=== PATIENT | female | born 1960 | race American Indian/Alaskan Native ===

== ENCOUNTER 2019-06-06 19:56 | Observation (INO) | payer BC, MEDICARE ==
--- NOTE | 2019-06-06 20:26 | Event Note ---
ED Screening Note ED Screening Note: pt states substernal CP that began today states it radiates down her left arm +mild SOB anxiety she states her BP was elevated at work, 142/90 denies any hx of HTN PMHx: PE 1997, gastric sleeve, anxiety/ depression, CHF This initial assessment/diagnostic orders/clinical plan/treatment(s) is/are subj ect to change based on patients health status, clinical progression and re- assessment by fellow clinical providers in the ED. Further treatment and workup at subsequent clinical providers discretion. Patient/guardian urged not to elope from the ED as their condition may be serious if not clinically assessed and managed. Initial orders include: CP protocol
--- NOTE | 2019-06-06 20:55 | XRay Report ---
CHEST 2 VIEWS INDICATION: CP. Acute left-sided chest pain COMPARISON: Chest x-ray from 09/12/2018 FINDINGS: Support devices: None. Heart: Old sternotomy change. Lungs/pleura: Minimal patchy left basilar airspace disease with otherwise clear lungs. No pneumothor ax. Additional findings: None. IMPRESSION: 1. Minimal patchy left basilar airspace disease with otherwise clear lungs. Signer Name: Eitan Vasquez MD Signed: 06/06/2019 8:51 PM Workstation Name: [id number]
[2019-06-06 21:23] LABS: Basophils # (Auto) 0.1 K/mm3 (0.0-0.1); Eosinophils # (Auto) 0.1 K/mm3 (0.0-0.4); Eosinophils % (Auto) 1.8 % (0.0-4.3); Hematocrit 37.9 % (30.3-42.9); Hemoglobin 12.8 gm/dl (10.1-14.3); Lymphocytes # (Auto) 2.4 K/mm3 (1.2-5.4); Lymphocytes % (Auto) 35.7 % (13.4-35.0); Mean Corpuscular HGB Conc 34 % (30-34); Mean Corpuscular Volume 96 fl (79-97); Monocytes # (Auto) 0.6 K/mm3 (0.0-0.8); Monocytes % (Auto) 8.3 % (0.0-7.3); Platelet Count 300 K/mm3 (140-440); Red Blood Count 3.96 M/mm3 (3.65-5.03); Red Cell Distribution Width 14.5 % (13.2-15.2)
[2019-06-06 22:00] LABS: Alanine Aminotransferase 16 units/L (7-56); BUN/Creatinine Ratio 10; Blood Urea Nitrogen 5 mg/dL (7-17); Calcium 9.2 mg/dL (8.4-10.2); Hemolysis Index 8
--- NOTE | 2019-06-06 22:00 | Emergency Department Report ---
ED Chest Pain HPI - General Chief Complaint: Chest Pain Stated Complaint: BLOOD PRESSURE AND ARM PAIN, LEFT SIDE OF CHEST Time Seen by Provider: 06/06/19 20:17 Source: patient Mode of arrival: Ambulatory Limitations: No Limitations - History of Present Illness Initial Comments: 59-year-old female presents to ED with chest pain and generalized weakness. Patient states she felt weak at work, blood pressure was taken there, states it was high and she was told to come to the ER. Patient states systolic BP was in the 140s. Patient also reports chest pain that has been intermittent over the last 2-3 days, with radiation into the left arm. Patient denies shortness of breath, nausea, vomiting. Patient reports history of PE in the past, states she stopped taking her throughout in October of this year. Patient does not give a reason why. Patient reported tobacco use, denies alcohol and drug use. MD Complaint: chest pain -: days(s) (3) Onset: during rest Pain Location: substernal Pain Radiation: LUE Severity: mild Quality: aching Consistency: intermittent Improves With: nothing Worsens With: nothing re: denies: nausea, vomting, diaphoresis, dyspnea Other Symptoms: denies: cough, fever, leg swelling - Related Data Previous Rx's Medication Instructions Recorded Last Taken Type ALBUTEROL Inhaler(NF) [VENTOLIN 1 puff IH TID PRN #1 09/15/18 Unknown Rx Inhaler(NF)] ALBUTEROL NEB's [Proventil 0.083% 2.5 mg IH Q4HRT PRN #30 nebu 09/15/18 Unknown Rx NEBS] Acetaminophen [Acetaminophen TAB] 650 mg PO Q4H PRN #15 tablet 09/15/18 Unknown Rx Benzonatate [Tessalon Perles] 200 mg PO Q8HR PRN #9 capsule 09/15/18 Unknown Rx Cholecalciferol Vit D3 [Vitamin D3 1,000 unit PO QDAY #30 09/15/18 Unknown Rx 1,000 UNIT TAB] Cyanocobalamin (Vitamin B-12) 2,000 mcg PO DAILY #30 09/15/18 Unknown Rx [Vitamin B-12] Ferrous Sulfate [Iron 325 MG] 325 mg PO DAILY #30 09/15/18 Unknown Rx Fluticasone [Flonase] 1 inhalation NS QDAY 3 Days #1 09/15/18 Unknown Rx bottle Furosemide [Lasix TAB] 40 mg PO QDAY #30 09/15/18 Unknown Rx Loratadine [Claritin] 10 mg PO QDAY #15 tablet 09/15/18 Unknown Rx Oxycodone HCl [oxyCODONE] 30 mg PO DAILY PRN #5 09/15/18 Unknown Rx Rivaroxaban [Xarelto] 10 mg PO QDAY #30 tablet 09/15/18 Unknown Rx levoFLOXacin [Levaquin TAB] 500 mg PO Q24HR #6 tablet 09/15/18 Unknown Rx methylPREDNISolone [Medrol Dose 1 dose PO DAILY #1 pack 09/15/18 Unknown Rx Edu] Cyclobenzaprine [Flexeril] 10 mg PO TID PRN #30 tablet 10/21/18 Unknown Rx Menthol/Camphor [[place]ol[place] 1 applicatio TP QID PRN #1 tube 10/21/18 Unknown Rx Ointment] Naproxen 500 mg PO BID PRN #30 tablet 10/21/18 Unknown Rx Allergies Allergy/AdvReac Type Severity Reaction Status Date / Time No Known Allergies Allergy Verified 09/19/15 16:07 Heart Score - HEART Score History: Moderately suspicious EKG: Non-specific Age: 45-65 Risk factors: 1-2 risk factors Troponin: < normal limit HEART Score: 4 ED Review of Systems ROS: Stated complaint: BLOOD PRESSURE AND ARM PAIN, LEFT SIDE OF CHEST Other details as noted in HPI Comment: All other systems reviewed and negative Constitutional: denies: chills, fever Respiratory: denies: cough, shortness of breath Cardiovascular: chest pain Gastrointestinal: denies: nausea, vomiting Psychiatric: other (reports insomnia) ED Past Medical Hx - Past Medical History Previous Medical History?: Yes Hx Hypertension: No Hx Congestive Heart Failure: Yes Hx Diabetes: No Hx Deep Vein Thrombosis: Yes (Right leg) Hx Pulmonary Embolism: Yes (x2) Hx Liver Disease: No Hx Renal Disease: No Hx Sickle Cell Disease: No Hx Arthritis: Yes Hx Seizures: No Hx Kidney Stones: No Hx Asthma: No Hx COPD: No Hx Tuberculosis: No Hx Dementia: No Hx HIV: No Additional medical history: CROHN'S DISEASE - Surgical History Past Surgical History?: Yes Hx Coronary Stent: No Hx Open Heart Surgery: Yes (Thromboendarectomy) Hx Pacemaker: No Hx Internal Defibrillator: No Hx Cholecystectomy: Yes Hx Appendectomy: No Hx Breast Surgery: No Additional Surgical History: TUBAL. - Social History Smoking Status: Current Every Day Smoker Substance Use Type: None - Medications Home Medications: Home Medications Medication Instructions Recorded Confirmed Last Taken Type ALBUTEROL Inhaler(NF) [VENTOLIN 1 puff IH TID PRN #1 09/15/18 09/13/18 Unknown Rx Inhaler(NF)] ALBUTEROL NEB's [Proventil 0.083% 2.5 mg IH Q4HRT PRN #30 nebu 09/15/18 Unknown Rx NEBS] Acetaminophen [Acetaminophen TAB] 650 mg PO Q4H PRN #15 tablet 09/15/18 Unknown Rx Benzonatate [Tessalon Perles] 200 mg PO Q8HR PRN #9 capsule 09/15/18 Unknown Rx Cholecalciferol Vit D3 [Vitamin D3 1,000 unit PO QDAY #30 09/15/18 09/13/18 Unknown Rx 1,000 UNIT TAB] Cyanocobalamin (Vitamin B-12) 2,000 mcg PO DAILY #30 09/15/18 09/13/18 Unknown Rx [Vitamin B-12] Ferrous Sulfate [Iron 325 MG] 325 mg PO DAILY #30 09/15/18 09/13/18 Unknown Rx Fluticasone [Flonase] 1 inhalation NS QDAY 3 Days #1 09/15/18 Unknown Rx bottle Furosemide [Lasix TAB] 40 mg PO QDAY #30 09/15/18 09/13/18 Unknown Rx Loratadine [Claritin] 10 mg PO QDAY #15 tablet 09/15/18 Unknown Rx Oxycodone HCl [oxyCODONE] 30 mg PO DAILY PRN #5 09/15/18 09/13/18 Unknown Rx Rivaroxaban [Xarelto] 10 mg PO QDAY #30 tablet 09/15/18 Unknown Rx levoFLOXacin [Levaquin TAB] 500 mg PO Q24HR #6 tablet 09/15/18 Unknown Rx methylPREDNISolone [Medrol Dose 1 dose PO DAILY #1 pack 09/15/18 Unknown Rx Edu] Cyclobenzaprine [Flexeril] 10 mg PO TID PRN #30 tablet 10/21/18 Unknown Rx Menthol/Camphor [[place] 1 applicatio TP QID PRN #1 tube 10/21/18 Unknown Rx Ointment] Naproxen 500 mg PO BID PRN #30 tablet 10/21/18 Unknown Rx ED Physical Exam - General Limitations: No Limitations General appearance: alert, in no apparent distress - Head Head exam: Present: atraumatic, normocephalic - Eye Eye exam: Present: normal appearance, PERRL, EOMI - ENT ENT exam: Present: mucous membranes moist - Neck Neck exam: Present: normal inspection - Respiratory Respiratory exam: Present: normal lung sounds bilaterally. Absent: respiratory distress - Cardiovascular Cardiovascular Exam: Present: regular rate, normal rhythm - GI/Abdominal GI/Abdominal exam: Present: soft. Absent: distended, tenderness - Extremities Exam Extremities exam: Present: normal inspection. Absent: pedal edema, calf t enderness - Neurological Exam Neurological exam: Present: alert, oriented X3 - Psychiatric Psychiatric exam: Present: normal affect, normal mood - Skin Skin exam: Present: warm, dry, intact, normal color ED Course Vital Signs 06/06/19 06/06/19 06/06/19 20:10 20:19 21:58 Temperature 97.9 F 97.8 F Pulse Rate 80 79 Respiratory 18 18 Rate Blood Pressure 132/88 148/91 O2 Sat by Pulse 98 98 98 Oximetry 06/06/19 06/06/19 06/06/19 22:00 22:15 22:31 Temperature Pulse Rate 71 72 78 Respiratory 24 22 16 Rate Blood Pressure 143/93 143/93 143/93 O2 Sat by Pulse 98 98 98 Oximetry 06/06/19 06/06/19 06/06/19 22:45 22:52 23:00 Temperature Pulse Rate 79 77 Respiratory 16 16 13 Rate Blood Pressure 143/93 130/80 O2 Sat by Pulse 98 97 Oximetry 06/06/19 06/06/19 06/07/19 23:13 23:31 01:00 Temperature Pulse Rate 77 75 78 Respiratory 9 L 15 22 Rate Blood Pressure 130/80 130/80 150/89 O2 Sat by Pulse 99 96 95 Oximetry MAURO score - Mauro Score Age > 65: (0) No Aspirin use within the Past 7 Days: (1) Yes 3 or more CAD Risk Factors: (1) Yes 2 or more Angina events in past 24 hrs: (0) No Known CAD with more than 50% Stenosis: (0) No Elevated Cardiac Markers: (0) No ST Deviation Greater than 0.5mm: (0) No MAURO Score: 2 ED Medical Decision Making - Lab Data Result diagrams: 06/06/19 20:51 06/06/19 20:51 - EKG Data -: EKG Interpreted by Me EKG shows normal: sinus rhythm, axis, intervals, QRS complexes Rate: normal - EKG Data Interpretation: other (anterior T wave inversions) - Radiology Data Radiology results: report reviewed, image reviewed - Medical Decision Making 59-year-old female with generalized weakness and chest pain. Patient reports history of PE in the past, currently off anticoagulation. CTA is negative for any evidence of PE, however does show severe calcification of her coronary arteries. EKG unremarkable, troponin is negative. Patient is chest pain-free at this time. Will admit to hospitalist, Dr Dozier, for further evaluation. - Differential Diagnosis ACS, PE, pneumonia Critical care attestation.: If time is entered above; I have spent that time in minutes in the direct care of this critically ill patient, excluding procedure time. ED Disposition Clinical Impression: Acute chest pain Disposition: OP ADMIT IP TO THIS HOSP Is pt being admited?: Yes Condition: Stable Instructions: Chest Pain (ED) Referrals: VIRAJ CORMIER MD [Primary Care Provider] - 3-5 Days Time of Disposition: 01:37
[2019-06-06] MEDS ORDERED: MORPHINE IV ONE (23:04)
--- NOTE | 2019-06-07 01:08 | Cat Scan Report ---
CT angiography of the chest with intravenous contrast and multiplanar MIP reconstructions INDICATION / CLINICAL INFORMATION: Chest pain. TECHNIQUE: Axial CT images were obtained after injection of 100 cc Omnipaque 350 intravenously. IV contrast usin g CTA protocol. 3 plane MIP / 3D reconstructions were produced. All CT scans at this location are per formed using CT dose reduction for ALARA by means of automated exposure control. COMPARISON: 09/12/2018. FINDINGS: There is excellent opacification of the pulmonary arterial system bilaterally without intraluminal fi lling defect to suggest acute PTE. The central pulmonary arteries appear mildly dilated with the main pulmonary artery measuring 3.7 cm transverse. There is mild cardiomegaly. Marked coronary artery tan cification is present. There is mild ectasia of the ascending thoracic aorta without focal aneurysm o r dissection. The tracheobronchial tree is normal. There is mild scarring in both lungs. There is no evidence of ad enopathy or effusion. The gallbladder is surgically absent. The bile ducts are mildly dilated without a cause seen. There is an IVC filter. IMPRESSION: 1. No evidence of acute PTE. 2. Findings characteristic of pulmonary arterial hypertension. 3. Mild cardiomegaly and severe coronary artery calcification. 4. Mild bile duct prominence in a postcholecystectomy patient. Signer Name: Yogi Dill MD Signed: 06/07/2019 1:03 AM Workstation Name: [id number]
[2019-06-07] MEDS ORDERED: ASPIRIN PO ONE (01:36)
[2019-06-07] MEDS ORDERED: TYLENOL PO PRN (02:57)
[2019-06-07] MEDS ORDERED: DILAUDID IV PRN (02:57)
[2019-06-07] MEDS ORDERED: SODIUM CHLORIDE FLUSH SYRINGE 10 ML IV PRN (02:57)
[2019-06-07] MEDS ORDERED: ZOFRAN IV PRN (02:57)
--- NOTE | 2019-06-07 04:18 | History and Physical Report ---
History of Present Illness Date of examination: 06/07/19 Chief complaint: Chest pain History of present illness: Patient is a 59-year-old -[place] female with history of recurrent PE an d Crohn's disease who presented to the ED on account of 4 days history of left- sided chest pain. She described it as dull in character, rated 8/10, constant in duration and radiates to the left arm. No known aggravating or relieving factors. She has associated shortness of breath, diaphoresis, dry cough, chills without fever, headaches, nausea without vomiting and lightheadedness. No leg swelling, orthopnea, PND, syncope or loss of consciousness. Patient had an exercise stress test in August 2018 which was reported as negative. Past History Past Medical History: other (Crohn's disease, history of recurrent PE, herniated disc) Past Surgical History: cholecystectomy, Other (vein surgery) Social history: smoking (patient had 40 years history of cigarette smoking but quit in 2013. She admits to occasional alcohol use but denies illicit drug use) Family history: other (A sister has ulcerative colitis. No known family history of sudden cardiac or heart disease) Medications and Allergies Allergies Allergy/AdvReac Type Severity Reaction Status Date / Time No Known Allergies Allergy Verified 09/19/15 16:07 Home Medications Medication Instructions Recorded Confirmed Last Taken Type ALBUTEROL Inhaler(NF) [VENTOLIN 1 puff IH TID PRN #1 09/15/18 09/13/18 Unknown Rx Inhaler(NF)] ALBUTEROL NEB's [Proventil 0.083% 2.5 mg IH Q4HRT PRN #30 nebu 09/15/18 Unknown Rx NEBS] Acetaminophen [Acetaminophen TAB] 650 mg PO Q4H PRN #15 tablet 09/15/18 Unknown Rx Benzonatate [Tessalon Perles] 200 mg PO Q8HR PRN #9 capsule 09/15/18 Unknown Rx Cholecalciferol Vit D3 [Vitamin D3 1,000 unit PO QDAY #30 09/15/18 09/13/18 Unknown Rx 1,000 UNIT TAB] Cyanocobalamin (Vitamin B-12) 2,000 mcg PO DAILY #30 09/15/18 09/13/18 Unknown Rx [Vitamin B-12] Ferrous Sulfate [Iron 325 MG] 325 mg PO DAILY #30 09/15/18 09/13/18 Unknown Rx Fluticasone [Flonase] 1 inhalation NS QDAY 3 Days #1 09/15/18 Unknown Rx bottle Furosemide [Lasix TAB] 40 mg PO QDAY #30 09/15/18 09/13/18 Unknown Rx Loratadine [Claritin] 10 mg PO QDAY #15 tablet 09/15/18 Unknown Rx Oxycodone HCl [oxyCODONE] 30 mg PO DAILY PRN #5 09/15/18 09/13/18 Unknown Rx Rivaroxaban [Xarelto] 10 mg PO QDAY #30 tablet 09/15/18 Unknown Rx levoFLOXacin [Levaquin TAB] 500 mg PO Q24HR #6 tablet 09/15/18 Unknown Rx methylPREDNISolone [Medrol Dose 1 dose PO DAILY #1 pack 09/15/18 Unknown Rx Edu] Cyclobenzaprine [Flexeril] 10 mg PO TID PRN #30 tablet 10/21/18 Unknown Rx Menthol/Camphor [[place] 1 applicatio TP QID PRN #1 tube 10/21/18 Unknown Rx Ointment] Naproxen 500 mg PO BID PRN #30 tablet 10/21/18 Unknown Rx Active Meds: Active Medications Acetaminophen (Tylenol) 650 mg PO Q4H PRN PRN Reason: Pain MILD(1-3)/Fever >100.5/ESCALANTE Aspirin (Baby Aspirin) 81 mg PO QDAY [facility] Famotidine (Pepcid) 20 mg PO BID TANVI Hydromorphone HCl (Dilaudid) 0.5 mg IV Q3H PRN PRN Reason: Pain, Moderate (4-6) Ondansetron HCl (Zofran) 4 mg IV Q8H PRN PRN Reason: Nausea And Vomiting Oxycodone/Acetaminophen (Percocet 5/325) 1 tab PO Q6H PRN PRN Reason: Pain, Moderate (4-6) Rivaroxaban (Xarelto) 10 mg PO QDAY [facility]; Protocol Sodium Chloride (Sodium Chloride Flush Syringe 10 Ml) 10 ml IV BID TANVI Sodium Chloride (Sodium Chloride Flush Syringe 10 Ml) 10 ml IV PRN PRN PRN Reason: LINE FLUSH Review of Systems All systems: negative (all other systems reviewed with the patient and are negative unless otherwise stated) Exam - Constitutional Vitals: Temp Pulse Resp BP Pulse Ox 97.8 F 78 22 150/89 95 06/06/19 20:19 06/07/19 01:00 06/07/19 01:00 06/07/19 01:00 06/07/19 01:00 General appearance: Present: no acute distress, well-nourished - EENT Eyes: Present: PERRL, EOM intact ENT: hearing intact, clear oral mucosa - Neck Neck: Present: supple, normal ROM - Respiratory Respiratory effort: normal Respiratory: bilateral: CTA - Cardiovascular Rhythm: regular Heart Sounds: Present: S1 & S2. Absent: rub, click - Extremities Extremities: pulses symmetrical, No edema Peripheral Pulses: within normal limits - Abdominal General gastrointestinal: Present: soft, non-tender, non-distended, normal bowel sounds Female genitourinary: Present: deferred - Integumentary Integumentary: Present: clear, warm, dry - Musculoskeletal Musculoskeletal: gait normal, strength equal bilaterally - Psychiatric Psychiatric: appropriate mood/affect, intact judgment & insight - Neurologic Neurologic: CNII-XII intact, moves all extremities Results - Labs CBC & Chem 7: 06/06/19 20:51 06/06/19 20:51 Labs: Laboratory Last Values WBC 6.8 K/mm3 (4.5-11.0) 06/06/19 20:51 RBC 3.96 M/mm3 (3.65-5.03) 06/06/19 20:51 Hgb 12.8 gm/dl (10.1-14.3) 06/06/19 20:51 Hct 37.9 % (30.3-42.9) 06/06/19 20:51 MCV 96 fl (79-97) 06/06/19 20:51 MCH 32 pg (28-32) 06/06/19 20:51 MCHC 34 % (30-34) 06/06/19 20:51 RDW 14.5 % (13.2-15.2) 06/06/19 20:51 Plt Count 300 K/mm3 (140-440) 06/06/19 20:51 Lymph % (Auto) 35.7 % (13.4-35.0) H 06/06/19 20:51 Door % (Auto) 8.3 % (0.0-7.3) H 06/06/19 20:51 Eos % (Auto) 1.8 % (0.0-4.3) 06/06/19 20:51 Baso % (Auto) 1.0 % (0.0-1.8) 06/06/19 20:51 Lymph # 2.4 K/mm3 (1.2-5.4) 06/06/19 20:51 Door # 0.6 K/mm3 (0.0-0.8) 06/06/19 20:51 Eos # 0.1 K/mm3 (0.0-0.4) 06/06/19 20:51 Baso # 0.1 K/mm3 (0.0-0.1) 06/06/19 20:51 Seg Neutrophils % 53.2 % (40.0-70.0) 06/06/19 20:51 Seg Neutrophils # 3.6 K/mm3 (1.8-7.7) 06/06/19 20:51 356.49 ng/mlDDU (0-234) H 06/06/19 20:51 Sodium 140 mmol/L (137-145) 06/06/19 20:51 Potassium 4.0 mmol/L (3.6-5.0) 06/06/19 20:51 Chloride 102.2 mmol/L (98-107) 06/06/19 20:51 Carbon Dioxide 27 mmol/L (22-30) 06/06/19 20:51 15 mmol/L 06/06/19 20:51 BUN 5 mg/dL (7-17) L 06/06/19 20:51 0.5 mg/dL (0.7-1.2) L 06/06/19 20:51 Estimated GFR > 60 ml/min 06/06/19 20:51 10 % 06/06/19 20:51 Glucose 100 mg/dL (65-100) 06/06/19 20:51 Calcium 9.2 mg/dL (8.4-10.2) 06/06/19 20:51 0.30 mg/dL (0.1-1.2) 06/06/19 20:51 AST 19 units/L (5-40) 06/06/19 20:51 ALT 16 units/L (7-56) 06/06/19 20:51 132 units/L (35-129) H 06/06/19 20:51 < 0.010 ng/mL (0.00-0.029) 06/06/19 22:55 7.4 g/dL (6.3-8.2) 06/06/19 20:51 4.0 g/dL (3.9-5) 06/06/19 20:51 1.2 % 06/06/19 20:51 - Imaging and Cardiology CT scan - chest: report reviewed Assessment and Plan Assessment and plan: Acute chest pain, rule out ACS -On chest pain pathway -Patient's last stress test was in August 2018 -Cardiology to determine if patient needs to have another stress test Pulmonary arterial hypertension per chest imaging -We'll order echocardiogram to assess severity History of recurrent PE -Patient reported that she quit taking her oral anticoagulation about a year ago because according to her, a doctor told her to do so -We will resume her oral anticoagulation with xarelto -CTA chest negative for acute PE History of Crohn's disease -No acute exacerbation -And when necessary narcotics GI prophylaxis with famotidine Disposition: Patient will be placed in observation status pending further evaluation and treatment Time spent: 38 minutes
[2019-06-07 04:24] LABS: Chol/HDL Ratio 2.44 %
[2019-06-07] MEDS ORDERED: ASPIRIN ONE (06:50)
[2019-06-07] MEDS ORDERED: PERCOCET 5/325 ONE (06:51)
[2019-06-07] MEDS: PERCOCET 5/325 PO PRN ×2 (06:52→14:32)
[2019-06-07] MEDS ORDERED: SODIUM CHLORIDE FLUSH SYRINGE 10 ML IV SCH (10:00)
[2019-06-07] MEDS ORDERED: PEPCID PO SCH (10:00)
[2019-06-07] MEDS ORDERED: XARELTO PO SCH (10:00)
[2019-06-07] MEDS ORDERED: LEXISCAN IV ONE ×2 (11:01→11:32)
[2019-06-07 14:04] VITALS: BP 113/68
--- NOTE | 2019-06-07 15:12 | Discharge Summary ---
Providers - Providers Date of Admission: 06/07/19 02:57 Date of discharge: 06/07/19 Attending physician: ROSAMARIA ALAMO Primary care physician: VIRAJ CORMIER MD Hospitalization Condition: Stable Hospital course: Discharge diagnosis and management: Acute chest pain, ruled out ACS -Patient's last stress test was in August 2018 -repeat stress test ordered Pulmonary arterial hypertension per chest imaging -Ordered echocardiogram to assess severity, outpt followup History of recurrent PE -Patient reported that she quit taking her oral anticoagulation about a year ago because according to her, a doctor told her to do so -CTA chest negative for acute PE, further f/u outpt History of Crohn's disease -No acute exacerbation, has outpt followup GI prophylaxis with famotidine Disposition: DC-01 TO HOME OR SELFCARE Time spent for discharge: 34 minutes Core Measure Documentation - Palliative Care Palliative Care/ Comfort Measures: Not Applicable - Core Measures Any of the following diagnoses?: none Exam - Constitutional Vitals: Temp Pulse Resp BP Pulse Ox 98.1 F 76 16 113/68 95 06/07/19 12:52 06/07/19 12:52 06/07/19 12:52 06/07/19 12:52 06/07/19 12:52 General appearance: Present: no acute distress, well-nourished - EENT Eyes: Present: PERRL ENT: hearing intact, clear oral mucosa - Neck Neck: Present: supple, normal ROM - Respiratory Respiratory effort: normal Respiratory: bilateral: CTA - Cardiovascular Heart Sounds: Present: S1 & S2. Absent: rub, click - Extremities Extremities: pulses symmetrical, No edema Peripheral Pulses: within normal limits - Abdominal General gastrointestinal: Present: soft, non-tender, non-distended, normal bowel sounds - Integumentary Integumentary: Present: clear, warm, dry - Musculoskeletal Musculoskeletal: gait normal, strength equal bilaterally - Psychiatric Psychiatric: appropriate mood/affect, intact judgment & insight - Neurologic Neurologic: CNII-XII intact, moves all extremities Plan Activity: advance as tolerated Weight Bearing Status: Weight Bear as Tolerated Diet: low fat, low salt Follow up with: VIRAJ CORMIER MD [Primary Care Provider] - 3-5 Days Prescriptions: Temazepam [Restoril] 15 mg PO QHS PRN #30 capsule PRN Reason: Sleep Pantoprazole [Protonix] 40 mg PO QDAY #30 tablet
--- NOTE | 2019-06-08 04:29 | Treadmill Report ---
STRESS THALLIUM REPORT A 59-year-old. ROOM NUMBER: [id number]. Resting myocardial perfusion images with technetium-99 scan revealed homogeneous radioisotope activity throughout the myocardium. On post-Lexiscan, again there was similar distribution of the isotope. On gated scan, ejection fraction was noted to be 61%. No segmental motion abnormality noted. IMPRESSION: 1. This test is negative for ischemia. 2. Good left ventricular systolic function with ejection fraction of 61%. JOB# [id number] KR/NTS
[2019-06-08] MEDS ORDERED: BABY ASPIRIN PO SCH (10:00)
== END 2019-06-07 18:24 | disposition home or self-care (01) ==
LOC: ED 19:56 → 4A 06-07 02:57
PROVIDERS: ADMIT Internal Medicine; ATTEND Internal Medicine
DX: R07.89 Other chest pain (principal); Z86.711 Personal history of pulmonary embolism; I27.20 Pulmonary hypertension, unspecified; I10 Essential (primary) hypertension; K50.90 Crohn's disease, unspecified, without complications
CPT/HCPCS: 36415; 71046; 71275; 78452; 80053; 80061; 84484; 85025; 85379; 93005; 93010; 93017; 93306; 96374; 99284; A9502; G0378; J2270; J2785; Q9967

== ENCOUNTER 2019-06-08 17:24 | Emergency (ER) | payer BC, MEDICARE ==
[2019-06-08 17:38] VITALS: BP 126/88
--- NOTE | 2019-06-08 17:38 | Event Note ---
ED Screening Note ED Screening Note: here with anxiety just dc from inpt yesterday stress test neg does not appear they addressed the anxiety on meds for depression/anxiety she does not feel abilify is working she has appnt with md next week no new trigger rx abilify pmh anxiety/dep no hi no si no a/v madera lives alone no cig/etoh/drugs works for [employer] labs all recent will have [facility] see and give outpt resources This initial assessment/diagnostic orders/clinical plan/treatment(s) is/are subject to change based on patients health status, clinical progression and re- assessment by fellow clinical providers in the ED. Further treatment and workup at subsequent clinical providers discretion. Patient/guardian urged not to elope from the ED as their condition may be serious if not clinically assessed and managed. Initial orders include: kirstie zimmerman
--- NOTE | 2019-06-08 19:18 | Emergency Department Report ---
ED General Adult HPI - General Chief complaint: Anxiety Stated complaint: EMOTIONAL DISTRESS/SI Time Seen by Provider: 06/08/19 17:37 Source: patient Mode of arrival: Ambulatory Limitations: No Limitations - History of Present Illness Initial comments: Patient is a 59-year-old [place]ym[place] female is presenting with anxiety type symptoms. Patient just released from as the inpatient setting after being evaluated for acute chest pain. Patient had a negative CT for pulmonary embolus and also had a negative stress test. Patient states she is on Abilify for anxiety but feels like it's not working and she doesn't like the side effects. Patient came to the emergency department seeking mental health evaluation. Patient states he is not homicidal suicidal at this time. - Related Data Previous Rx's Medication Instructions Recorded Last Taken Type ALBUTEROL Inhaler(NF) [VENTOLIN 1 puff IH TID PRN #1 09/15/18 Unknown Rx Inhaler(NF)] ALBUTEROL NEB's [Proventil 0.083% 2.5 mg IH Q4HRT PRN #30 nebu 09/15/18 Unknown Rx NEBS] Acetaminophen [Acetaminophen TAB] 650 mg PO Q4H PRN #15 tablet 09/15/18 Unknown Rx Benzonatate [Tessalon Perles] 200 mg PO Q8HR PRN #9 capsule 09/15/18 Unknown Rx Cholecalciferol Vit D3 [Vitamin D3 1,000 unit PO QDAY #30 09/15/18 Unknown Rx 1,000 UNIT TAB] Cyanocobalamin (Vitamin B-12) 2,000 mcg PO DAILY #30 09/15/18 Unknown Rx [Vitamin B-12] Ferrous Sulfate [Iron 325 MG] 325 mg PO DAILY #30 09/15/18 Unknown Rx Fluticasone [Flonase] 1 inhalation NS QDAY 3 Days #1 09/15/18 Unknown Rx bottle Furosemide [Lasix TAB] 40 mg PO QDAY #30 09/15/18 Unknown Rx Loratadine [Claritin] 10 mg PO QDAY #15 tablet 09/15/18 Unknown Rx Oxycodone HCl [oxyCODONE] 30 mg PO DAILY PRN #5 09/15/18 Unknown Rx Rivaroxaban [Xarelto] 10 mg PO QDAY #30 tablet 09/15/18 Unknown Rx Cyclobenzaprine [Flexeril] 10 mg PO TID PRN #30 tablet 10/21/18 Unknown Rx Menthol/Camphor [[place] 1 applicatio TP QID PRN #1 tube 10/21/18 Unknown Rx Ointment] Naproxen 500 mg PO BID PRN #30 tablet 10/21/18 Unknown Rx Pantoprazole [Protonix] 40 mg PO QDAY #30 tablet 06/07/19 Unknown Rx Temazepam [Restoril] 15 mg PO QHS PRN #30 capsule 06/07/19 Unknown Rx hydrOXYzine PAMOATE [Vistaril] 25 mg PO Q6HR PRN #12 capsule 06/08/19 Unknown Rx Allergies Allergy/AdvReac Type Severity Reaction Status Date / Time No Known Allergies Allergy Verified 09/19/15 16:07 ED Review of Systems ROS: Stated complaint: EMOTIONAL DISTRESS/SI Other details as noted in HPI Comment: All other systems reviewed and negative ED Past Medical Hx - Past Medical History Previous Medical History?: Yes Hx Hypertension: No Hx Congestive Heart Failure: Yes Hx Diabetes: No Hx Deep Vein Thrombosis: Yes (Right leg) Hx Pulmonary Embolism: Yes (x2) Hx Liver Disease: No Hx Renal Disease: No Hx Sickle Cell Disease: No Hx Arthritis: Yes Hx Seizures: No Hx Kidney Stones: No Hx Asthma: No Hx COPD: No Hx Tuberculosis: No Hx Dementia: No Hx HIV: No Additional medical history: CROHN'S DISEASE - Surgical History Past Surgical History?: Yes Hx Coronary Stent: No Hx Open Heart Surgery: Yes (Thromboendarectomy) Hx Pacemaker: No Hx Internal Defibrillator: No Hx Cholecystectomy: Yes Hx Appendectomy: No Hx Breast Surgery: No Additional Surgical History: TUBAL. - Social History Smoking Status: Never Smoker Substance Use Type: None - Medications Home Medications: Home Medications Medication Instructions Recorded Confirmed Last Taken Type ALBUTEROL Inhaler(NF) [VENTOLIN 1 puff IH TID PRN #1 09/15/18 06/07/19 Unknown Rx Inhaler(NF)] ALBUTEROL NEB's [Proventil 0.083% 2.5 mg IH Q4HRT PRN #30 nebu 09/15/18 06/07/19 Unknown Rx NEBS] Acetaminophen [Acetaminophen TAB] 650 mg PO Q4H PRN #15 tablet 09/15/18 06/07/19 Unknown Rx Benzonatate [Tessalon Perles] 200 mg PO Q8HR PRN #9 capsule 09/15/18 06/07/19 Unknown Rx Cholecalciferol Vit D3 [Vitamin D3 1,000 unit PO QDAY #30 09/15/18 06/07/19 Unknown Rx 1,000 UNIT TAB] Cyanocobalamin (Vitamin B-12) 2,000 mcg PO DAILY #30 09/15/18 06/07/19 Unknown Rx [Vitamin B-12] Ferrous Sulfate [Iron 325 MG] 325 mg PO DAILY #30 09/15/18 06/07/19 Unknown Rx Fluticasone [Flonase] 1 inhalation NS QDAY 3 Days #1 09/15/18 06/07/19 Unknown Rx bottle Furosemide [Lasix TAB] 40 mg PO QDAY #30 09/15/18 06/07/19 Unknown Rx Loratadine [Claritin] 10 mg PO QDAY #15 tablet 09/15/18 06/07/19 Unknown Rx Oxycodone HCl [oxyCODONE] 30 mg PO DAILY PRN #5 09/15/18 06/07/19 Unknown Rx Rivaroxaban [Xarelto] 10 mg PO QDAY #30 tablet 09/15/18 06/07/19 Unknown Rx Cyclobenzaprine [Flexeril] 10 mg PO TID PRN #30 tablet 10/21/18 06/07/19 Unknown Rx Menthol/Camphor [[place] 1 applicatio TP QID PRN #1 tube 10/21/18 06/07/19 Unknown Rx Ointment] Naproxen 500 mg PO BID PRN #30 tablet 10/21/18 06/07/19 Unknown Rx Pantoprazole [Protonix] 40 mg PO QDAY #30 tablet 06/07/19 Unknown Rx Temazepam [Restoril] 15 mg PO QHS PRN #30 capsule 06/07/19 Unknown Rx hydrOXYzine PAMOATE [Vistaril] 25 mg PO Q6HR PRN #12 capsule 06/08/19 Unknown Rx ED Physical Exam - General Limitations: No Limitations General appearance: alert, in no apparent distress - Head Head exam: Present: atraumatic, normocephalic - Eye Eye exam: Present: normal appearance - ENT ENT exam: Present: mucous membranes moist - Neck Neck exam: Present: normal inspection - Respiratory Respiratory exam: Present: normal lung sounds bilaterally. Absent: respiratory distress, wheezes, rales, rhonchi - Cardiovascular Cardiovascular Exam: Present: regular rate, normal rhythm, normal heart sounds. Absent: systolic murmur, diastolic murmur, rubs, gallop - GI/Abdominal GI/Abdominal exam: Present: soft, normal bowel sounds. Absent: distended, tenderness, guarding, rebound - Extremities Exam Extremities exam: Present: normal inspection - Back Exam Back exam: Present: normal inspection - Neurological Exam Neurological exam: Present: alert, oriented X3 - Psychiatric Psychiatric exam: Present: normal affect, normal mood - Skin Skin exam: Present: warm, dry, intact, normal color. Absent: rash ED Course Vital Signs 06/08/19 17:36 Temperature 97.8 F Pulse Rate 82 Respiratory 18 Rate Blood Pressure 126/88 O2 Sat by Pulse 100 Oximetry ED Medical Decision Making - Medical Decision Making Was seen by her mental health specialist and is given outpatient therapy options. Patient also states she has her own mental health doctor. We urged her to follow-up. Patient given a short course of Vistaril. Critical care attestation.: If time is entered above; I have spent that time in minutes in the direct care of this critically ill patient, excluding procedure time. ED Disposition Clinical Impression: Anxiety reaction Disposition: DC-01 TO HOME OR SELFCARE Is pt being admited?: No Does the pt Need Aspirin: No Condition: Stable Instructions: Anxiety (ED) Prescriptions: hydrOXYzine PAMOATE [Vistaril] 25 mg PO Q6HR PRN #12 capsule PRN Reason: Anxiety Referrals: VIRAJ CORMIER MD [Primary Care Provider] - 3-5 Days Time of Disposition: 19:20
[2019-06-08] MEDS ORDERED: VISTARIL PO ONE (20:07)
== END 2019-06-08 20:18 | disposition home or self-care (01) ==
LOC: ED 17:24
DX: F41.1 Generalized anxiety disorder (principal); I50.9 Heart failure, unspecified; M19.90 Unspecified osteoarthritis, unspecified site; K50.90 Crohn's disease, unspecified, without complications; Z86.718 Personal history of other venous thrombosis and embolism; Z79.01 Long term (current) use of anticoagulants; Z86.711 Personal history of pulmonary embolism; Z98.51 Tubal ligation status; Z90.49 Acquired absence of other specified parts of digestive tract; Z79.899 Other long term (current) drug therapy
CPT/HCPCS: Q0177

== ENCOUNTER 2019-07-04 08:34 | Day surgery (SDC) | payer BC, MEDICARE ==
[2019-07-04] MEDS ORDERED: NACL 0.9% 1000 ML 1,000 ML IV SCH (10:00)
--- NOTE | 2019-07-04 10:19 | Anesthesia Consultation ---
Anesthesia Consult and Med Hx Date of service: 07/04/19 - Airway Anesthetic Teeth Evaluation: Dentures ROM Head & Neck: Adequate Mental/Hyoid Distance: Adequate Mallampati Class: Class II Intubation Access Assessment: Probably Good - Pulmonary Exam CTA: Yes - Cardiac Exam Cardiac Exam: RRR - Pre-Operative Health Status ASA Pre-Surgery Classification: ASA2 Proposed Anesthetic Plan: MAC - Pulmonary Hx Smoking: Yes (Former smoker, quit 2013) Hx Asthma: No COPD: No Hx Pneumonia: No Hx Sleep Apnea: No - Cardiovascular System Hx Hypertension: No Hx Coronary Artery Disease: Yes Hx Angina: Yes Hx Percutaneous Transluminal Coronary Angioplasty (PTCA): No Hx Pacemaker: No Hx Internal Defibrillator: No Hx Valvular Heart Disease: No Hx Heart Murmur: No Hx Peripheral Vascular Disease: No - Central Nervous System Hx Seizures: No CVA: Yes (X2) Hx Back Pain: Yes (CERVICAL STRAIN 10/2014) Hx Psychiatric Problems: Yes (Anxiety/Depression) - Gastrointestinal Hx Ulcer: No - Endocrine Hx Renal Disease: No Hx End Stage Renal Disease: No Hx Cirrhosis: No Hx Liver Disease: No Hx Hypothyroidism: No Hx Hyperthyroidism: No - Hematic Hx Anemia: No Hx Sickle Cell Disease: No - Other Systems Hx Cancer: No - Additional Comments Anesthesia Medical History Comments: Patient denied previous anesthesia complications
--- NOTE | 2019-07-04 10:20 | Anesthesia Day of Surgery ---
Anesthesia Day of Surgery - Day of Surgery Patient Examined: Yes Patient H&P Reviewed: Yes Patient is NPO: Yes
[2019-07-04] MEDS ORDERED: DIPRIVAN 10 MG/ML IV ONE ×3 (11:19→11:36)
[2019-07-04] MEDS ORDERED: SUBLIMAZE ONE (11:19)
[2019-07-04] MEDS ORDERED: WATER FOR IRRIG STERILE IR ONE (11:20)
[2019-07-04 12:51] VITALS: BP 116/75
--- NOTE | 2019-07-04 13:14 | Operative Report ---
PROCEDURE: Colonoscopy with biopsy. INDICATIONS: The patient is a 59-year-old -[place] female who had an EGD done prior to the colonoscopy, which showed presence of gastric sleeve, moderate Shabana esophagitis, small gastric ulcer and gastritis. For the colonoscopy, initial rectal exam was unremarkable. Instrument was passed through the rectum onto the proximal colon where there appeared to be some evidence of surgery. There were some random biopsies done from the proximal colon near the anastomotic site. In addition, there was a smaller area a little distal to that and also in the proximal colon if it showed evidence of ulceration and colitis. Photo documentation and biopsy was also obtained from this area. The remaining part of the proximal colon and the transverse colon showed normal mucosa. There were several small polyps, possibly hyperplastic noted in the descending colon and several of these were removed. The remaining part of the descending and the sigmoid colon showed normal mucosa and the rectum appeared normal on the retroverted view without any internal hemorrhoids. ASSESSMENT: Status post partial colon resection of the proximal colon, proximal colitis. Multiple descending colon polyps. There was minimal bleeding from the biopsy sites. No complications associated with the procedure. PLAN: Plan is to wait for the biopsy results and further treatment adjustment will be according to the biopsy findings. The patient will be asked to follow up in the office in 1-2 weeks' time. The patient in the interim will be treated with fluconazole and PPI because of the upper endoscopy findings of moderate Shabana esophagitis as well as small gastric ulcer. Procedure was done in the GI lab with assistance of the GI lab team, which included RAUL, Juliette Ogden as well as Fabián silva and with the assistance of anesthesia. The patient will be asked to follow up in the office in 1-2 weeks' time. JOB# [id number] JAKE/MICAELA
--- NOTE | 2019-07-04 13:16 | Operative Report ---
PROCEDURE: EGD with biopsy. INDICATIONS: This is a 59-year-old -I[place]ian female with a history of a gastric sleeve that lately has been having some dyspeptic symptoms. She also has a history of asthma and does take inhalers. DESCRIPTION OF PROCEDURE: The procedure was done after getting informed consent with MAC anesthesia. Instrument was passed through the hypopharynx into the esophagus, which showed moderate whitish plaques suggestive of Shabana esophagitis. Photodocumentation and biopsies were taken. The stomach showed evidence of status post gastric sleeve. There was a small gastric ulcer noted in the lower part of the stomach. Biopsy was obtained from that area and also from the upper part of the stomach as well. There was minimal bleeding from the biopsy sites. No complications associated with the procedure. ASSESSMENT: Dyspepsia, status post gastric sleeve, moderate Shabana esophagitis, small gastric ulcer and gastritis. There was minimal bleeding from the biopsy sites. No complications associated with the procedure. PLAN: Plan is to treat the patient with fluconazole and PPI and to do a colonoscopy since the patient previously had some evidence of proximal colon colitis. The procedure was done in the GI lab with assistance of anesthesia and with assistance of the GI lab team, which included Juliette CARTER as well as Fabián silva. The patient will be asked to avoid aspirin and aspirin-related products for the next few days and again be treated with PPI and fluconazole and asked to follow up in the office in 1-2 weeks' time. A colonoscopy is to be done to assess for colon polyps as well as to assess for any evidence of colitis that the patient had previously had. JOB# [id number] JAKE/MICAELA
== END 2019-07-04 08:35 | disposition home or self-care (01) ==
LOC: GIO 08:34
DX: Z12.11 Encounter for screening for malignant neoplasm of colon (principal); K30 Functional dyspepsia; K29.50 Unspecified chronic gastritis without bleeding; K63.5 Polyp of colon; K63.89 Other specified diseases of intestine; K20.9 Esophagitis, unspecified; J45.909 Unspecified asthma, uncomplicated; I25.118 Atherosclerotic heart disease of native coronary artery with other forms of angina pectoris; I11.0 Hypertensive heart disease with heart failure; F17.210 Nicotine dependence, cigarettes, uncomplicated; F41.9 Anxiety disorder, unspecified; F32.9 Major depressive disorder, single episode, unspecified; I50.9 Heart failure, unspecified; M19.90 Unspecified osteoarthritis, unspecified site; Z98.51 Tubal ligation status; Z98.84 Bariatric surgery status; Z90.49 Acquired absence of other specified parts of digestive tract; Z79.899 Other long term (current) drug therapy; Z86.711 Personal history of pulmonary embolism; Z91.14 Patient's other noncompliance with medication regimen; Z86.718 Personal history of other venous thrombosis and embolism; Z98.890 Other specified postprocedural states; Z86.2 Personal history of diseases of the blood and blood-forming organs and certain disorders involving the immune mechanism; Z86.73 Personal history of transient ischemic attack (TIA), and cerebral infarction without residual deficits
CPT/HCPCS: 43239; 45380; 88305; 88312; 88342; J2704; J3010; J7030

== ENCOUNTER 2020-07-11 11:14 | Day surgery (SDC) | payer BC, MEDICARE ==
[~2020-07-11 11:14] MED LIST: SODIUM CHLORIDE 0.9% 1000 ML 1,000 ML IV SCH
--- NOTE | 2020-07-11 12:54 | Anesthesia Consultation ---
Anesthesia Consult and Med Hx Date of service: 07/11/20 - Airway Anesthetic Teeth Evaluation: Poor, Edentulous (upper) ROM Head & Neck: Adequate Mental/Hyoid Distance: Adequate Mallampati Class: Class III Intubation Access Assessment: Possibly Difficult - Pulmonary Exam CTA: Yes - Cardiac Exam Cardiac Exam: RRR - Pre-Operative Health Status ASA Pre-Surgery Classification: ASA3 Proposed Anesthetic Plan: MAC - Pulmonary Hx Smoking: Yes (Former smoker, quit 2013) Hx Respiratory Symptoms: Yes (chronic bronchitis) SOB: Yes (chronic CRUM) Hx Sleep Apnea: No - Cardiovascular System Hx Hypertension: Yes Hx Coronary Artery Disease: Yes (chornic CRUM but >4 mets functional capcity. Normal EF and stress test 2018) Hx Percutaneous Transluminal Coronary Angioplasty (PTCA): No (remote hx CABG) Hx Cardia Arrhythmia: No Hx Peripheral Vascular Disease: No (DVT/PE on xarelto (held x2 days)) - Central Nervous System CVA: Yes (w/ L sided weakness) Hx Back Pain: Yes Hx Psychiatric Problems: Yes (Anxiety/Depression) - Endocrine Hx Renal Disease: No Hx Liver Disease: No Hx Insulin Dependent Diabetes: No Hx Non-Insulin Dependent Diabetes: No Hx Thyroid Disease: No - Other Systems Hx Obesity: Yes (BMI 35)
--- NOTE | 2020-07-11 12:54 | Anesthesia Day of Surgery ---
Anesthesia Day of Surgery - Day of Surgery Patient Examined: Yes Patient H&P Reviewed: Yes Patient is NPO: Yes
[2020-07-11] MEDS ORDERED: propofoL 200 MG/20 ML VIAL IV ONE ×3 (13:40→14:06)
--- NOTE | 2020-07-11 13:45 | History and Physical Report ---
HISTORY OF PRESENT ILLNESS: This is a 60-year-old female who has an underlying history of colitis involving the proximal colon, as well as an umbilical hernia and status post gastric sleeve. She is to have some sort of a change done to her gastric bypass. Lately, she has been having abdominal pain and discomfort. Last colonoscopy was done a few years ago and having a repeat colonoscopy done to make sure that there has not been any worsening of her colitis. Her last colonoscopy was actually done a year ago. She is on blood thinners and has been off it for a couple of days. She has a history of allergy to DARVOCET. SOCIAL HISTORY: Denies history of smoking or alcohol use. No flu shots. PHYSICAL EXAMINATION: VITAL SIGNS: On exam, afebrile, blood pressure is 115/64, pulse is 79, height is 5 feet 6 inches, weight is 218. HEENT: Shows no JVD. LUNGS: Clear to auscultation. CARDIOVASCULAR: Normal. ABDOMEN: Shows an umbilical hernia and slight tenderness to palpation. No pedal edema. NEUROLOGIC: The patient is otherwise alert and oriented. ASSESSMENT: Abdominal pain, colitis involving the proximal colon, umbilical hernia that is enlarged, status post gastric sleeve. PLAN: To do a colonoscopy at [facility] on 07/11/2020. JOB# [id number] JAKE/MICAELA
[2020-07-11] MEDS ORDERED: PHENYLEPHRINE/NS 1,000 MCG/10 ML SYRINGE (OR USE) IV ONE (14:19)
[2020-07-11] MEDS ORDERED: LIDOCAINE MPF (2%) 20 MG/1 ML VIAL 5 ML ONE (14:20)
--- NOTE | 2020-07-11 14:31 | Procedure Note ---
Date of procedure: 07/11/20 Pre-op diagnosis: Abdominal Pain/ Colitis Post-op diagnosis: other (Colitis (R/O Crohn's Disease-Proximal Colon and Descending Colon)/ Multiple,Recto-Sigmoid Polyps/Surgical Changes Proximal colon) Procedure: Colonoscopy with Cold Biopsy and Snare Polypectomy and Fulguration of Colon Polyps using the tip of the snare polypectomy Anesthesia: MAC Surgeon: MARYSE GARDNER Estimated blood loss: minimal Pathology: list Specimen disposition: to lab Condition: stable Disposition: same day (Avoid aspirin and NSAID for 5 days; otherwise resume home medication. Further treatment as per biopsy findings. follow up in 1 to 2 weeks ([phone]).)
--- NOTE | 2020-07-11 15:11 | Post Anesthesia Evaluation ---
- Post Anesthesia Evaluation Patient Participated: Yes Airway Patent: Yes Stable Respiratory Function: Yes Nausea/Vomiting: No Temp > 96.8F: Yes Pain Manageable: Yes Adequeate Hydration: Yes Anesthesia Complications: No
[2020-07-11 15:45] VITALS: BP 106/58
--- NOTE | 2020-07-11 16:05 | Operative Report ---
INDICATIONS: This is a 60-year-old female who has had a prior history of a gastric bypass, prior history of colon, possible history of colitis, possible history of surgical changes involving the proximal colon. DESCRIPTION OF PROCEDURE: The procedure was done after getting informed consent because of abdominal pain. Initial rectal exam was unremarkable. Instrument was passed through the rectum onto the proximal colon where there was some surgical changes noted. There were some areas that appeared to be inflamed and ulcerated close to the opening with the junction with the terminal ileum. Photo documentation and biopsies were obtained from this area. The remaining part of the proximal colon showed normal mucosa and the transverse colon also showed normal mucosa. In the descending colon close to the splenic flexure there was also an area of inflammation from which photodocumentation was done and biopsies taken in the remaining part. The more distal part of the descending colon and the sigmoid colon showed normal mucosa. However, in the rectosigmoid area, there were numerous polyps, most of which were removed by cold biopsy, some of which were fulgurated using the tip of the polypectomy snare and one was removed by using cold snare polypectomy and retrieved and the rectum showed some minor internal hemorrhoid on the retroverted view. There was minimal bleeding associated with the procedure. No complications associated with the procedure. PROCEDURE: Colonoscopy with cold biopsy and snare polypectomy with fulguration of polyps. ASSESSMENT: Abdominal pain, possible colitis, rule out Crohn's disease, surgical changes. In the proximal colon, minor internal hemorrhoid. PLAN: To wait for the biopsy results. Further adjustment of treatment will be according to the biopsy findings. The patient will be asked to avoid aspirin and aspirin-related products for the next few days and follow up in the office in 1-2 weeks' time. Procedure was done in the GI lab with assistance of the GI lab team, which included Piotr silva and RN, Opal Aragon along with the assistance of anesthesia. JOB# [id number] JAKE/MICAELA
== END 2020-07-11 11:15 | disposition home or self-care (01) ==
LOC: GIO 11:14
DX: R10.9 Unspecified abdominal pain (principal); K52.89 Other specified noninfective gastroenteritis and colitis; K62.1 Rectal polyp; K63.5 Polyp of colon; K63.89 Other specified diseases of intestine; F17.210 Nicotine dependence, cigarettes, uncomplicated; J45.909 Unspecified asthma, uncomplicated; I11.0 Hypertensive heart disease with heart failure; I50.9 Heart failure, unspecified; I25.118 Atherosclerotic heart disease of native coronary artery with other forms of angina pectoris; M19.90 Unspecified osteoarthritis, unspecified site; F41.9 Anxiety disorder, unspecified; F32.9 Major depressive disorder, single episode, unspecified; Z98.890 Other specified postprocedural states; Z79.899 Other long term (current) drug therapy; Z86.711 Personal history of pulmonary embolism; Z86.718 Personal history of other venous thrombosis and embolism; Z90.49 Acquired absence of other specified parts of digestive tract; Z98.51 Tubal ligation status; Z86.73 Personal history of transient ischemic attack (TIA), and cerebral infarction without residual deficits
CPT/HCPCS: 45380; 45385; 88305; J2370; J2704; J7030

== ENCOUNTER 2020-11-07 10:25 | Day surgery (SDC) | payer MEDICARE ==
--- NOTE | 2020-11-07 11:32 | Anesthesia Consultation ---
Anesthesia Consult and Med Hx Date of service: 11/07/20 - Airway Anesthetic Teeth Evaluation: Edentulous (upper) ROM Head & Neck: Adequate Mental/Hyoid Distance: Adequate Mallampati Class: Class III Intubation Access Assessment: Possibly Difficult - Pulmonary Exam CTA: Yes - Cardiac Exam Cardiac Exam: RRR - Pre-Operative Health Status ASA Pre-Surgery Classification: ASA3 Proposed Anesthetic Plan: MAC - Pulmonary Hx Smoking: Yes (Former smoker, quit 2013) Hx Respiratory Symptoms: Yes (chronic bronchitis) SOB: Yes (chronic CRUM) - Cardiovascular System Hx Hypertension: Yes Hx Coronary Artery Disease: Yes (chornic CRUM but >4 mets functional capcity. Normal EF and stress test 2018) Hx Percutaneous Transluminal Coronary Angioplasty (PTCA): No (remote hx CABG) Hx Cardia Arrhythmia: No Hx Peripheral Vascular Disease: No (remote hx DVT/PE on xarelto (held >1wk)) - Central Nervous System CVA: Yes (w/ L sided weakness) Hx Back Pain: Yes Hx Psychiatric Problems: Yes (Anxiety/Depression) - Endocrine Hx Renal Disease: No Hx Liver Disease: No Hx Insulin Dependent Diabetes: No Hx Non-Insulin Dependent Diabetes: No Hx Thyroid Disease: No - Other Systems Hx Obesity: Yes (BMI 36)
--- NOTE | 2020-11-07 11:32 | Anesthesia Day of Surgery ---
Anesthesia Day of Surgery - Day of Surgery Patient Examined: Yes Patient H&P Reviewed: Yes Patient is NPO: Yes
[2020-11-07] MEDS ORDERED: propofoL 200 MG/20 ML VIAL IV ONE ×2 (12:16→12:20)
[2020-11-07] MEDS ORDERED: LIDOCAINE MPF (2%) 20 MG/1 ML VIAL 5 ML ONE (12:16)
[2020-11-07] MEDS ORDERED: SODIUM CHLORIDE 0.9% 1000 ML IV SOLN IV ONE (12:22)
--- NOTE | 2020-11-07 12:36 | Procedure Note ---
Date of procedure: 11/07/20 Pre-op diagnosis: Abdominal Pain/ H/o Gastric Sleeve Post-op diagnosis: other (S/P Gastric Sleeve/ Mild to Moderate Erosive Esophagitis/ Gastritis/R/O Celiac Disease) Procedure: EGD with Biopsy Anesthesia: MAC Surgeon: MARYSE GARDNER Estimated blood loss: minimal Pathology: list Specimen disposition: to lab Condition: stable Disposition: same day (Treat with PPI. Avoid aspirin and NSAID and anticoagulants for 2 days; otherwise resume home medication and follow up in 1 to 2 weeks ([phone]).)
--- NOTE | 2020-11-07 12:50 | Operative Report ---
PROCEDURE: Esophagogastroduodenoscopy with biopsy. INDICATIONS: This is a 60-year-old -[place]onegas[place] female who has had prior history of gastric sleeve. She also has associated colitis for which she is on Lialda and umbilical hernia for which she is to have surgery and also some additional surgery done on the stomach. EGD was done because of some abdominal pain and has a clearance prior to her surgery. DESCRIPTION OF PROCEDURE: The procedure was done after getting informed consent. She has a prior history of a gastric sleeve. Procedure was done with MAC anesthesia. Instrument was passed through the hypopharynx into the esophagus, which showed some [id number] erosive esophagitis. Biopsy was done from the distal esophagus to assess for the severity of erosive esophagitis as well as from the mid esophagus to rule out for any eosinophilic esophagitis. The stomach showed antral gastritis, possibly a small gastric ulcer in the antrum, the pylorus was patent. The duodenum in the first and the second portion appeared normal. Biopsy was done from the second part to rule out for possible celiac disease. Additional biopsy was done from the gastric antrum as well as from the proximal stomach. The patient is status post gastric sleeve. ASSESSMENT: Abdominal pain, history of gastric sleeve, [id number] erosive esophagitis, rule out eosinophilic esophagitis gastritis, rule out celiac disease. PLAN: To treat the patient with PPI. Continue with present treatment. Avoid aspirin and aspirin-related products as well as anticoagulants for the next 1-2 days. The patient has a prior history of PE and will be asked to stay off the anticoagulants for a couple of days if possible and treat her with PPI and follow up in the office in 1-2 weeks' time. JOB# [id number] JAKE/MICAELA
[2020-11-07 13:24] VITALS: BP 116/75
== END 2020-11-07 10:26 | disposition home or self-care (01) ==
LOC: GIO 10:25
DX: R10.9 Unspecified abdominal pain (principal); K29.70 Gastritis, unspecified, without bleeding; K20.90 Esophagitis, unspecified without bleeding; M19.90 Unspecified osteoarthritis, unspecified site; E66.9 Obesity, unspecified; I10 Essential (primary) hypertension; J45.909 Unspecified asthma, uncomplicated; I25.10 Atherosclerotic heart disease of native coronary artery without angina pectoris; K50.90 Crohn's disease, unspecified, without complications; Z79.899 Other long term (current) drug therapy; Z88.8 Allergy status to other drugs, medicaments and biological substances; Z86.711 Personal history of pulmonary embolism; Z91.14 Patient's other noncompliance with medication regimen; Z86.718 Personal history of other venous thrombosis and embolism; Z98.890 Other specified postprocedural states; Z90.49 Acquired absence of other specified parts of digestive tract; Z98.51 Tubal ligation status; Z68.36 Body mass index [BMI] 36.0-36.9, adult; Z86.73 Personal history of transient ischemic attack (TIA), and cerebral infarction without residual deficits
CPT/HCPCS: 43239; 88305; 88342; J2704; J7030

== ENCOUNTER 2022-02-26 10:03 | Day surgery (SDC) | payer MEDICARE ==
--- NOTE | 2022-02-26 11:36 | Anesthesia Day of Surgery ---
Anesthesia Day of Surgery - Day of Surgery Patient Examined: Yes Patient H&P Reviewed: Yes Patient is NPO: Yes
--- NOTE | 2022-02-26 11:36 | Anesthesia Consultation ---
Anesthesia Consult and Med Hx Date of service: 02/26/22 - Airway Anesthetic Teeth Evaluation: Good, Edentulous (upper) ROM Head & Neck: Adequate Mental/Hyoid Distance: Adequate Mallampati Class: Class II Intubation Access Assessment: Probably Good - Pre-Operative Health Status ASA Pre-Surgery Classification: ASA3 Proposed Anesthetic Plan: MAC - Pulmonary Hx Smoking: Yes (former smoker quit 2013) Hx Respiratory Symptoms: No - Cardiovascular System Hx Hypertension: Yes Hx Coronary Artery Disease: Yes Hx Heart Attack/AMI: No Hx Peripheral Vascular Disease: No (hx DVT/PE on xarelto (held at least 1wk)) - Central Nervous System CVA: Yes - Gastrointestinal Hx Gastroesophageal Reflux Disease: No (IBD) - Endocrine Hx Renal Disease: No Hx Liver Disease: No Hx Insulin Dependent Diabetes: No Hx Non-Insulin Dependent Diabetes: No Hx Thyroid Disease: No - Additional Comments Anesthesia Medical History Comments: No hx anesthetic complications.
[2022-02-26] MEDS ORDERED: propofoL 200 MG/20 ML VIAL IV ONE ×2 (12:04→12:22)
[2022-02-26] MEDS ORDERED: SODIUM CHLORIDE 0.9% 1000 ML 1,000 ML ONE (12:41)
--- NOTE | 2022-02-26 12:46 | Procedure Note ---
Date of procedure: 02/26/22 Pre-op diagnosis: H/O Colitis Post-op diagnosis: other (Cecal colitis with ulceration/ R/O Ileitis/Surgical changes invilving the ileocecal valve/ R/O Microscopical colitis/ Multiple,Small polyps in the Left Colon/ Mild to Moderate Internal Hemorrhoids/ Prep was fair to good) Procedure: Colonoscopy with Biopsy [place] [facility] [place]: MARYSE GARDNER Estimated blood loss: minimal Specimen disposition: to lab Condition: stable Disposition: same day (Avdoid aspirin and NSAID for 5days; otherwise resume prev ious medication and F/U in 1 to 2 weeks ([phone]).)
--- NOTE | 2022-02-26 13:44 | Operative Report ---
DATE OF SURGERY: 02/26/2022 INDICATIONS: This is a 62-year-old -[place] female with an underlying history of inflammatory bowel disease and some surgical changes involving the proximal colon, especially the ileocecal valve area. Colonoscopy was done to make sure there was no exacerbation of the patient's colitis. She had a CT scan done, which seemed to suggest that she may have some ileitis. DESCRIPTION OF PROCEDURE: Procedure was done after getting informed consent. The instrument was passed through the rectum and onto the cecum, which was identified by the ileum and some surgical changes in the ileocecal valve. There is some ulcerated areas in the mucosa of the cecum. Photodocumentation and biopsies were obtained. Biopsy was also obtained from the terminal ileum, which did not appear to endoscopically to have ileitis. Random biopsies were done from the proximal colon distal to the ulcerated area, which was in the most proximal part of the cecum and also from the transverse, descending as well as the sigmoid colon. There were multiple small polyps noted in the left colon involving the sigmoid and the descending colon that were removed by cold biopsy and the rectum showed some [id number] internal hemorrhoid on the retroverted view. There was minimal bleeding from the biopsy sites, but no complications associated with the procedure. ASSESSMENT: History of colitis, inflammatory bowel disease. There was involvement of colitis with ulcerations in the proximal colon, namely the cecum, rule out ileitis. The surgical changes involving the ileocecal valve, rule out microscopic colitis. Multiple small left colon polyps. No diverticular disease noted and mild to moderate internal hemorrhoids. There was minimal bleeding associated with the procedure. No complications associated with the procedure. PLAN: To continue with the patient's medications, which include mesalamine. Await for the biopsy results. The patient may require to be placed on Remicade infusion when possible. Procedure was done in the GI lab with assistance of the GI lab team, which included the GI nurse, the upstream biomanufacturing technician and with assistance of anesthesia. TID: [id number] RECEIPT: [id number] JAKE/YOEL
[2022-02-26 14:22] VITALS: BP 116/83
== END 2022-02-26 10:04 | disposition home or self-care (01) ==
LOC: GIO 10:03
DX: K51.90 Ulcerative colitis, unspecified, without complications (principal); K52.89 Other specified noninfective gastroenteritis and colitis; K64.8 Other hemorrhoids; D12.5 Benign neoplasm of sigmoid colon; K63.89 Other specified diseases of intestine; J45.909 Unspecified asthma, uncomplicated; I11.0 Hypertensive heart disease with heart failure; I50.9 Heart failure, unspecified; I25.10 Atherosclerotic heart disease of native coronary artery without angina pectoris; I73.9 Peripheral vascular disease, unspecified; M19.90 Unspecified osteoarthritis, unspecified site; Z79.899 Other long term (current) drug therapy; Z88.8 Allergy status to other drugs, medicaments and biological substances; Z86.711 Personal history of pulmonary embolism; Z86.718 Personal history of other venous thrombosis and embolism; Z91.14 Patient's other noncompliance with medication regimen; Z90.49 Acquired absence of other specified parts of digestive tract; Z98.51 Tubal ligation status; Z98.890 Other specified postprocedural states; Z87.891 Personal history of nicotine dependence; Z86.73 Personal history of transient ischemic attack (TIA), and cerebral infarction without residual deficits
CPT/HCPCS: 45380; 88305; J2704; J7030

== ENCOUNTER 2022-03-13 06:14 | Emergency (ER) | payer OTHER, MEDICARE ==
--- NOTE | 2022-03-13 07:09 | XRay Report ---
XR ankle 3+V RT INDICATION / CLINICAL INFORMATION: INJURY COMPARISON: None available. AP, LATERAL, AND OBLIQUE VIEWS RIGHT ANKLE FINDINGS: No fracture, dislocation, or significant soft tissue abnormality. Vascular calcifications compatible with calcified phleboliths are noted along the anterior aspect of the lower leg. IMPRESSION: 1. No significant abnormality of the right ankle. Signer Name: Ananda Luke II, MD Signed: 03/13/2022 7:05 AM Workstation Name: [id number]
--- NOTE | 2022-03-13 07:10 | XRay Report ---
RIGHT SHOULDER 3 VIEW(S) INDICATION / CLINICAL INFORMATION: INJURY. COMPARISON: None available. FINDINGS: BONES / JOINT(S): No acute fracture or subluxation. No significant arthritis. SOFT TISSUES: No significant abnormality. ADDITIONAL FINDINGS: None. IMPRESSION: 1. No acute findings. No significant abnormality. Signer Name: Ananda Luke II, MD Signed: 03/13/2022 7:05 AM Workstation Name: [id number]
--- NOTE | 2022-03-13 07:18 | XRay Report ---
RIGHT KNEE 4 VIEW(S) INDICATION / CLINICAL INFORMATION: INJURY COMPARISON: Right femur 10/21/2018. FINDINGS: BONES / JOINT(S): No acute fracture or subluxation. Small marginal osteophyte medial joint compartmen t. Joint space is well-maintained. Findings compatible with bone infarct within the femoral condyles and proximal tibial metaphysis. SOFT TISSUES: No significant abnormality. ADDITIONAL FINDINGS: None. IMPRESSION: 1. No acute osseous injury. 2. Stable bone infarctions. Signer Name: Ananda Luke II, MD Signed: 03/13/2022 7:13 AM Workstation Name: [id number]
[2022-03-13] MEDS ORDERED: KETOROLAC 30 MG/1 ML INJ IM ONE (10:01)
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
[2022-03-13 11:02] VITALS: BP 130/80
== END 2022-03-13 11:02 | disposition home or self-care (01) ==
LOC: ED 06:14
DX: S39.012A Strain of muscle, fascia and tendon of lower back, initial encounter (principal); S96.911A Strain of unspecified muscle and tendon at ankle and foot level, right foot, initial encounter; S46.911A Strain of unspecified muscle, fascia and tendon at shoulder and upper arm level, right arm, initial encounter; S86.911A Strain of unspecified muscle(s) and tendon(s) at lower leg level, right leg, initial encounter; I11.0 Hypertensive heart disease with heart failure; I50.9 Heart failure, unspecified; M19.90 Unspecified osteoarthritis, unspecified site; I26.99 Other pulmonary embolism without acute cor pulmonale; Z90.49 Acquired absence of other specified parts of digestive tract; Z98.890 Other specified postprocedural states; Z79.899 Other long term (current) drug therapy; Z88.6 Allergy status to analgesic agent; Z88.1 Allergy status to other antibiotic agents; Z91.09 Other allergy status, other than to drugs and biological substances; V89.2XXA Person injured in unspecified motor-vehicle accident, traffic, initial encounter; Y93.89 Activity, other specified; Y92.89 Other specified places as the place of occurrence of the external cause; Y99.8 Other external cause status
CPT/HCPCS: 73030; 73562; 73610; 93005; 96372; 99283; J1885